=== PATIENT | male | born 1985 | race Caucasian/White ===

== ENCOUNTER 2022-07-04 21:48 | Emergency (ER) | payer OTHER ==
[~2022-07-04] VITALS: Ht 177.8 cm; Wt 81.6 kg
[2022-07-04 21:58] VITALS: BP 141/93
[2022-07-04] MEDS ORDERED: DIVALPROEX SODIUM 500 MG TABLET.DR PO ONE ×2 (22:28→22:30)
--- NOTE | 2022-07-04 23:13 | NUR ---
pt discharged in custody. pt not willing to leave. [employer] call
--- NOTE | 2022-07-04 23:46 | NUR ---
Patient discharged in [employer]'s custody in stable condition. Written and verbal after care instructions given. Patient verbalizes understanding of instruction.
[2022-07-06] MEDS ORDERED: NAPR-1192 PO (20:29)
== END 2022-07-05 00:16 ==
LOC: EDBD 21:56 → ER 21:56
DX: S00.81XA Abrasion of other part of head, initial encounter (principal); R45.6 Violent behavior; I10 Essential (primary) hypertension; Z88.2 Allergy status to sulfonamides; Z88.8 Allergy status to other drugs, medicaments and biological substances; X58.XXXA Exposure to other specified factors, initial encounter; Y93.89 Activity, other specified; Y92.512 Supermarket, store or market as the place of occurrence of the external cause; Y99.8 Other external cause status

== ENCOUNTER 2022-07-06 17:45 | Emergency (ER) | payer MEDICARE, OTHER ==
[~2022-07-06] VITALS: Ht 177.8 cm; Wt 81.6 kg
[2022-07-06 18:15] VITALS: BP 140/96
[2022-07-06] MEDS ORDERED: NAPR-1192 PO (20:29)
== END 2022-07-06 20:44 | disposition home or self-care (01) ==
LOC: ER 18:05
DX: M54.2 Cervicalgia (principal); M25.511 Pain in right shoulder; M25.512 Pain in left shoulder; I10 Essential (primary) hypertension; Z88.2 Allergy status to sulfonamides; Z79.899 Other long term (current) drug therapy
CPT/HCPCS: 72050-TC; 73030-TC